=== PATIENT | female | born 1950 | race Caucasian/White ===

== ENCOUNTER 2020-11-02 11:17 | Emergency (ER) | payer MEDICARE ==
[~2020-11-02] VITALS: Ht 172.7 cm; Wt 85.0 kg
[2020-11-02] MEDS ORDERED: NEURONTIN300 MG PO (11:47)
[2020-11-02] MEDS ORDERED: LEVOTHYROXINE150 MCG PO (11:49)
[2020-11-02] MEDS ORDERED: SPIRONOLACT50 MG PO (11:50)
[2020-11-02] MEDS ORDERED: NEXIUM20 M1 PO (11:50)
[2020-11-02] MEDS ORDERED: ASPIRIN 81 LOW81 MG PO (11:55)
[2020-11-02] MEDS ORDERED: TRAZODONE100 MG PO (11:55)
[2020-11-02] MEDS ORDERED: PROBIOTIC ACIDO1 CA1 PO ×2 (12:45→15:16)
[2020-11-02] MEDS ORDERED: BACTROBAN TOP ×2 (12:45→15:16)
[2020-11-02] MEDS ORDERED: AMOX/K CLAV875 M1 PO ×2 (12:45→15:16)
[2020-11-02 13:10] VITALS: BP 128/78
== END 2020-11-02 13:10 | disposition home or self-care (01) ==
LOC: ED 11:17
DX: S30.870A Other superficial bite of lower back and pelvis, initial encounter (principal); S70.371A Other superficial bite of right thigh, initial encounter; W54.0XXA Bitten by dog, initial encounter; Y92.007 Garden or yard of unspecified non-institutional (private) residence as the place of occurrence of the external cause